=== PATIENT | female | born 1965 | race Caucasian/White ===

== ENCOUNTER 2019-03-30 14:30 | Emergency (ER) | payer BC ==
[~2019-03-30] VITALS: Ht 162.6 cm; Wt 87.5 kg
[2019-03-30 16:52] VITALS: BP 131/71
== END 2019-03-30 16:52 | disposition home or self-care (01) ==
LOC: ER 14:30
DX: S61.411A Laceration without foreign body of right hand, initial encounter (principal); I10 Essential (primary) hypertension; W26.8XXA Contact with other sharp object(s), not elsewhere classified, initial encounter; Y92.89 Other specified places as the place of occurrence of the external cause; Y93.89 Activity, other specified; Y99.8 Other external cause status